=== PATIENT | female | born 1955 | race Hispanic/Latino ===

== ENCOUNTER 2017-08-04 18:18 | Emergency (ER) | payer OTHER ==
[2017-08-04 18:31] VITALS: BMI 18.8
[2017-08-04 18:33] VITALS: RESP 20
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
[2017-08-04 22:47] VITALS: BP 148/83; PULSE 86; TEMP 98; O2SAT 98
== END 2017-08-04 22:00 | disposition home or self-care (01) ==
LOC: C.ER 18:18
DX: S13.4XXA Sprain of ligaments of cervical spine, initial encounter (principal); S33.5XXA Sprain of ligaments of lumbar spine, initial encounter; V89.2XXA Person injured in unspecified motor-vehicle accident, traffic, initial encounter
CPT/HCPCS: 70450; 72125; 96372; 99285; J1885